=== PATIENT | male | born 1965 | race Caucasian/White ===

== ENCOUNTER 2019-11-20 08:32 | Emergency (ER) | payer SELFPAY ==
[~2019-11-20] VITALS: Ht 167.6 cm; Wt 101.8 kg
[~2019-11-20 08:32] MED LIST: ASPI325T8 PO; LISI10TA2 PO; LISI2.5T PO; LOVA20TA2 PO
[2019-11-20 08:37] VITALS: BP 260/128
--- NOTE | 2019-11-20 09:04 | PHYS DOC ---
Past Medical History Past Medical History: CVA, High Cholesterol, Heart Disease, Hypertension Additional Past Medical Histor: MA x 2. Past Surgical History: Angioplasty Additional Past Surgical Histo: Cardiac Stents x 2, CLOT RETRIEVAL, LT ANKLE Smoking Status: Current Every Day Smoker Alcohol Use: None Drug Use: None General Adult EDM: Chief Complaint: LOWER BACK PAIN OR INJURY HPI: HPI: 54-year-old male past medical history significant for CVA on Plavix, hypertension, hyperlipidemia, CAD and tobacco dependence, presents the ED with complaints of "my legs gave out," and pt fell backwards on built-in wooden cabinets in his closet. Complains of right low back pain stating, "it's harder to get up.". Has chronic bilateral LE weakness from a stroke and is suppose to ambulate with a cane. Did not hit his head or lose consciousness. Cannot recall last tetanus shot. ROS: Denies associated fever, chills, headache, neck stiffness, cough, sore throat, chest pain, dyspnea, leg swelling, rash, nausea, vomiting, diarrhea, abdominal or back pain, saddle anesthesia, urinary or bowel retention or incontinence. Current Medications: Current Medications Medications (Trade) Dose Ordered Sig/Anthony Start Time Stop Time Status Last Admin Dose Admin Diphtheria/ Tetanus/Acell Pertussis (ADACEL TDap SYRINGE) 0.5 ml ONCE ONCE 11/20/19 09:15 11/20/19 09:16 UNV Allergies: Allergies: Allergies Coded Allergies Type Severity Reaction Last Updated Verified No Known Drug Allergies 06/11/13 No Physical Exam: PE: Constitutional: Well developed, well nourished, no acute distress, non-toxic appearance. [] HENT: Normocephalic, atraumatic, nose normal. [] Eyes: EOMI, conjunctiva normal, no discharge. [] Neck: Normal range of motion, no tenderness, supple, no stridor. [] Cardiovascular:Heart rate regular rhythm, no murmur [] Lungs & Thorax: Bilateral breath sounds clear to auscultation [] Abdomen: Bowel sounds normal, soft, no tenderness, no masses, no pulsatile masses. [] Skin: Warm, dry, no erythema, no rash. [] Back:8 x8 cm abrasion to right thoracic paraspinal region T4-8, no CVA tenderness, abdominal obesity-able to lift himself up and stand/walk Extremities: No tenderness, no cyanosis, no clubbing, ROM intact, no edema. [] Neurologic: Alert and oriented X 3, normal motor function, normal sensory function, no focal deficits noted. [] Psychologic: Affect normal, judgement normal, mood normal. [] Current Patient Data: Vital Signs: Vital Signs Date Time Temp Pulse Resp B/P (MAP) Pulse Ox O2 Delivery O2 Flow Rate FiO2 11/20/19 08:37 97.9 107 16 260/128 (172) 98 Room Air 97.9 EKG: EKG: [] Radiology/Procedures: Radiology/Procedures: IMAGING REPORT Signed PATIENT: OTTO RECIO JACCOUNT: [id number] : 1965 LOCATION: ER AGE: 54 SEX: M EXAM STATUS: REG ER ORD. PHYSICIAN: NIDIA NEWSOME DO REASON: FALL TODAY, BACK PAIN PROCEDURE: CT ABDOMEN PELVIS WO CONTRAST CT LUMBAR SPINE WO CONTRAST, CT THORACIC SPINE WO CONTRAST, CT ABDOMEN PELVIS WO CONTRAST INDICATION: FALL TODAY, BACK PAIN EXAM: Noncontrast CT of the thoracic spine, lumbar spine, and abdomen and pelvis. Coronal and sagittal reformatted images were performed. PQRS compliance statement: One or more of the following individualized dose reduction techniques were utilized for this examination: 1. Automated exposure control 2. Adjustment of the mA and/or kV according to patient size 3. Use of iterative reconstruction technique COMPARISON: None FINDINGS: No free air, free fluid, or fluid collection. Lower chest: The visualized lower lungs are aerated. No pleural or pericardial effusion. Coronary artery atherosclerotic disease. Left upper lobe indeterminate nodule measuring 0.5 cm (thoracic spine series 3 image 27). ABDOMEN: Liver: The noncontrast liver is homogeneous in attenuation. Gallbladder and biliary: Normal gallbladder without radiopaque stone. Normal caliber bile ducts. Spleen: Normal spleen. Pancreas: The noncontrast pancreas is homogeneous in attenuation without peripancreatic inflammatory changes. Adrenal glands: Normal adrenal glands. Kidneys and ureters: No opaque urinary calculi. Normal kidneys and ureters. GI tract: The stomach is decompressed and poorly evaluated. Normal caliber small bowel and colon. Mild colonic diverticulosis. Normal appendix. Vascular structures: Diffuse aortoiliac atherosclerotic disease. Lymph nodes: No lymphadenopathy in the abdomen or pelvis. PELVIS: Genitourinary system: Normal bladder. SKELETAL STRUCTURES AND SOFT TISSUES: Multilevel degenerative changes of the spine. IMPRESSION: 1. No acute thoracic or lumbar spine fracture. 2. No evidence of abdominal solid organ injury. 3. Indeterminate left upper lobe nodule measuring 0.5 cm. Consider optional 12 month follow-up chest CT if patient has risk factors (history of smoking, history of malignancy, etc.). 4. Mild colonic diverticulosis. Electronically signed by: Penny Luu MD (11/20/2019 10:06 AM) [id number] DICTATED and SIGNED BY: PENNY LUU MD DATE: 11/20/19 1006 Course & Med Decision Making: Course & Med Decision Making Pertinent Labs and Imaging studies reviewed. (See chart for details) Concern for fall in the setting of chronic leg weakness, with superficial abrasions to patient's back. Patient reports his weakness has been chronic, but due to his low back pain and wanted to get it checked out-may benefit from outpt mri. Pt declined any analgesia in ed, relieved to hear that nothings broken-wioll dc with muscle relaxers, nsaids and recommended triple abx ointment bid. Encouraged urgent outpatient follow-up with PMD and Ortho. Life- threatening processes were considered but are low suspicion at this time, given history and physical exam. Pt was educated on all prescription medications and adverse effects. All patient's questions were answered and pt was stable at time of discharge. Differential includes aortic dissection, cauda equina syndrome, transverse myelitis, spinal cord compression, epidural abscess or hematoma, osteomyelitis, disc herniation, surgical abdomen, stable or unstable fracture, renal col ic/urosepsis, musculoskeletal injury, traumatic injury, intraabdominal or pelvic bleeding, I spoken with the patient and her caregivers. I explained the patient's condition, diagnoses and treatment plan based on the information available to me at this time. I have answered the patient and her caregiver's questions and addressed any concerns. The patient and her caregivers have a good understanding of patient's diagnosis, condition and treatment plan as can be expected at this point. Vital signs have been stable. Patient's condition is stable and appropriate for discharge from the emergency department. Patient will pursue further outpatient evaluation with primary care physician or other designated or consulting physician as outlined in the discharge instructions. The patient and/or caregivers are agreeable to this plan of care and follow-up instructions have been explained in detail. The patient and/or caregivers have received these instructions in written form and have expressed an understanding of the discharge instructions. The patient and/or caregivers are aware that any significant change of condition or worsening of symptoms should prompt immediate return to this or the closest emergency department or call to 911. Mary Grace Disclaimer: Dragon Disclaimer: This electronic medical record was generated, in whole or in part, using a voice recognition dictation system. Departure Departure Impression: Primary Impression: Back pain Additional Impression: Abrasion Disposition: HOME, SELF-CARE Condition: STABLE Referrals: VERENICE CLOUD JR, MD (PCP) Patient Instructions: Abrasions, Back Pain, Adult Additional Instructions: Hector Bassett MD Primary Specialties Orthopaedic Sports Medicine Orthopaedic Surgery Address: [address] [place] [address] Scripts Naproxen (NAPROSYN) 500 Mg Tablet 1 TAB PO BID for pain, #20 TAB Prov: NIDIA NEWSOME DO 11/20/19 Cyclobenzaprine Hcl (CYCLOBENZAPRINE HCL) 10 Mg Tablet 1 TAB PO TID, #21 TAB Prov: NIDIA NEWSOME DO 11/20/19 Justicifation of Admission Dx: Justifications for Admission: Justification of Admission Dx: N/A NIDIA NEWSOME DO Nov 20, 2019 09:04
[2019-11-20] MEDS ORDERED: DIPH,PERTUSS(ACELL),TET VAC/PF 0.5 ML SYRINGE. VAX IM ONE (09:15)
--- NOTE | 2019-11-20 10:09 | RAD ---
CT LUMBAR SPINE WO CONTRAST, CT THORACIC SPINE WO CONTRAST, CT ABDOMEN PELVIS WO CONTRAST INDICATION: FALL TODAY, BACK PAIN EXAM: Noncontrast CT of the thoracic spine, lumbar spine, and abdomen and pelvis. Coronal and sagittal reformatted images were performed. PQRS compliance statement: One or more of the following individualized dose reduction techniques were utilized for this examination: 1. Automated exposure control 2. Adjustment of the mA and/or kV according to patient size 3. Use of iterative reconstruction technique COMPARISON: None FINDINGS: No free air, free fluid, or fluid collection. Lower chest: The visualized lower lungs are aerated. No pleural or pericardial effusion. Coronary artery atherosclerotic disease. Left upper lobe indeterminate nodule measuring 0.5 cm (thoracic spine series 3 image 27). ABDOMEN: Liver: The noncontrast liver is homogeneous in attenuation. Gallbladder and biliary: Normal gallbladder without radiopaque stone. Normal caliber bile ducts. Spleen: Normal spleen. Pancreas: The noncontrast pancreas is homogeneous in attenuation without peripancreatic inflammatory changes. Adrenal glands: Normal adrenal glands. Kidneys and ureters: No opaque urinary calculi. Normal kidneys and ureters. GI tract: The stomach is decompressed and poorly evaluated. Normal caliber small bowel and colon. Mild colonic diverticulosis. Normal appendix. Vascular structures: Diffuse aortoiliac atherosclerotic disease. Lymph nodes: No lymphadenopathy in the abdomen or pelvis. PELVIS: Genitourinary system: Normal bladder. SKELETAL STRUCTURES AND SOFT TISSUES: Multilevel degenerative changes of the spine. IMPRESSION: 1. No acute thoracic or lumbar spine fracture. 2. No evidence of abdominal solid organ injury. 3. Indeterminate left upper lobe nodule measuring 0.5 cm. Consider optional 12 month follow-up chest CT if patient has risk factors (history of smoking, history of malignancy, etc.). 4. Mild colonic diverticulosis. Electronically signed by: Daniel Luu MD (11/20/2019 10:06 AM) [id number]
[2019-11-20] MEDS ORDERED: CYCL10TA2 PO (12:23)
[2019-11-20] MEDS ORDERED: NAPR-683 PO (12:23)
== END 2019-11-20 12:26 | disposition home or self-care (01) ==
LOC: ER 08:32
DX: S30.810A Abrasion of lower back and pelvis, initial encounter (principal); R53.1 Weakness; E78.00 Pure hypercholesterolemia, unspecified; I11.9 Hypertensive heart disease without heart failure; I25.2 Old myocardial infarction; F17.200 Nicotine dependence, unspecified, uncomplicated; Z86.73 Personal history of transient ischemic attack (TIA), and cerebral infarction without residual deficits; Z90.89 Acquired absence of other organs; Z98.890 Other specified postprocedural states; W18.39XA Other fall on same level, initial encounter; Y93.89 Activity, other specified; Y92.89 Other specified places as the place of occurrence of the external cause; Y99.8 Other external cause status
CPT/HCPCS: 72128; 72131; 74176; 90471; 90715; 99285